=== PATIENT | male | born 1950 | race Asian ===

== ENCOUNTER 2025-03-14 09:50 | Outpatient (CLI) | payer MEDICARE, SELFPAY ==
--- OUTSIDE RECORDS SUMMARY | 2025-03-14 09:58 | XMS_ITS | Clinical Summary ---
Author Organization [facility] Address [address] [place] [id number] Phone Care Team Providers Care Lpta Name Role Phone Alexandra Coffman MD Primary Care Provider [phone] Allergies Active Allergy Reactions Criticality Noted Date Comments Aspirin nausea Low 02/02/2017 High dose only High dose only Medications sildenafil (VIAGRA) 100 MG tablet as directed 0 7 Active aspirin EC 81 MG EC tablet one tab daily 0 7 Active niacin (NIASPAN) 1000 MG CR tablet one tab daily at bedtime 0 7 Active cholecalciferol (VITAMIN D-3) 25 MCG (1000 UT) capsule Take 2,000 Units by mouth 1 (one) time each day Active olopatadine (PATANOL) 0.1 % ophthalmic solution 1 drop 2 (two) times a day Active allopurinol (ZYLOPRIM) 100 MG tablet Take 100 mg by mouth 1 (one) time each day Active escitalopram (LEXAPRO) 10 MG tablet Take 10 mg by mouth daily 2 Active cycloSPORINE (RESTASIS) 0.05 % ophthalmic emulsion Administer 1 drop into both eyes in the morning and 1 drop in the evening. Active Icosapent Ethyl (Vascepa) 1 g capsule Take 2 capsules by mouth in the morning and 2 capsules in the evening. Active lisinopril (PRINIVIL) 10 MG tablet Take 30 mg by mouth 1 (one) time each day Active mometasone (ELOCON) 0.1 % cream Apply 1 application. topically 1 (one) time each day Active Semaglutide,0.2 5 or 0.5MG/DOS, (Ozempic, 0.25 or 0.5 MG/DOSE,) 2 MG/3ML solution pen-injector Inject 0.5 mg under the skin per week Active ascorbic acid (VITAMIN C) 1000 MG tablet Take 1,000 mg by mouth 1 (one) time each day Active chlorthalidone (HYGROTON) 25 MG tablet Take 25 mg by mouth 1 (one) time each day Active clotrimazole (LOTRIMIN) 1 % cream Apply topically 2 (two) times a day Active ezetimibe-simva statin (VYTORIN) 10-40 MG per tablet Take 1 tablet by mouth every night Active Active Problems Problem Noted Date Diagnosed Date Hypercalcemia 09/25/2024 Chronic kidney disease 12/26/2017 Obstructive sleep apnea 12/27/2016 Essential (primary) hypertension 12/14/2016 Resolved Problems Problem Noted Date Diagnosed Date Resolved Date Hyperuricemia 02/23/2021 08/10/2022 Steatosis of liver 02/17/2021 Acquired cyst of kidney 12/27/201602/04 Immunizations Immunization Administration Dates Next Due Influenza TIV (IM) 11/07/2016 Family History Medical History Relation Comments Cerebrovascular accident Father Hypertensive disorder Father Kidney disease Neg Hx Relation Status Comments Father Social History Tobacco Use Types Packs/Day Years Used Date Smoking Tobacco: Never Smokeless Tobacco: Never Alcohol Use Standard Drinks/Week Comments Yes 0 (1 standard drink = 0.6 oz pure alcohol) Alcoholic Drinks/day: occasional use Sex and Gender Information Value Date Recorded Sex Assigned at Not on file Legal Sex Male 9:45 AM [facility] Gender Identity Not on file Sexual Orientation Not on file Last Filed Vital Signs Vital Sign Reading Time Taken Comments Blood Pressure 113/71 09/25/2024 2:39 PM [facility] Pulse 81 09/25/2024 2:39 PM [facility] Temperature - - Respiratory Rate - - Oxygen Saturation - - Inhaled Oxygen Concentration - - Weight 91.2 kg (201 lb) 09/25/2024 2:39 PM [facility] Height 167.6 cm (5' 6 ) 09/25/2024 2:39 PM [facility] Body Mass Index 32.44 09/25/2024 2:39 PM [facility] Plan of Treatment Upcoming Encounters Date Type Department Care Team ([facility] st Contact Info) Description 03/26/2025 2:40 PM CDT Office Visit [facility] [address] [place] [phone] Amadeo Tomlin MD [address] [facility] [address] [place] [address] Health Maintenance Due Date Last Done Comments Diabetic Foot Exam 1960 Ophthalmology Exam 1960 Pneumococcal PPSV23/PCV13 65 + Years / High and Highest Risk (2 of 4 - PPSV23) 10/02/2019 08/07/2019 COVID-19 Vaccine (5 - 2023-2 5 season) 2024 02/17/2022, 08/29/2021, 01/25/2021, Additional history exists Influenza Vaccine (Season Ended) 2025 08/31/2022, 08/27/2021, 08/09/2020, Additional history exists Insurance [employer] Care Teams Lpta Relationship Specialty Start [place] [id number] [place], [place] [id number] PCP - General Family Medicine 09/23/24
--- OUTSIDE RECORDS SUMMARY | 2025-03-14 09:58 | XMS_ITS | Clinical Summary ---
Author Organization [address] Address [address] [place] [id number] Care Team Providers Care Wort Extractor Name Role Phone Helen Paris Primary Care Provider + Allergies Active Allergy Reactions Criticality Noted Date Comments Aspirin Medications ascorbic acid (VITAMIN C) 1,000 mg tablet Take 1 tablet (1,000 mg total) by mouth daily Active aspirin 81 mg enteric coated tablet Take 1 tablet (81 mg total) by mouth daily 12/14/19 17 Active cycloSPORINE (RESTASIS) 0.05 % ophthalmic emulsion Administer 1 drop into affected eye(s) 2 (two) times a day Active olopatadine (PATANOL) 0.1 % ophthalmic solution Administer 1 drop into affected eye(s) 2 (two) times a day 12/04/19 24 Active clotrimazole 1 % creamIndications:R beverly Apply topically 2 (two) times a day 30 g 05/10/20 24 Active cholecalciferol (VITAMIN D-3) 1,000 unit capsule Take 2 capsules (2,000 Units total) by mouth daily 180 capsule 3 05/10/20 24 Active mometasone (ELOCON) 0.1 % creamIndications:E czema, unspecified type Apply 1 Application topically daily 45 g 5 05/10/20 24 Active niacin ER (NIASPAN) 1,000 mg CR tabletIndications: Mixed hyperlipidemia Take 1 tablet (1,000 mg total) by mouth nightly 90 tablet 3 05/10/20 24 Active Additional Information Patient not taking.Reported on 01/16/2025 sildenafiL (VIAGRA) 100 mg tabletIndications: Erectile dysfunction, unspecified erectile dysfunction type Take 1 tablet (100 mg total) by mouth as needed for erectile dysfunction 10 tablet 5 05/10/20 24 Active icosapent ethyL (VASCEPA) 1 gram capsuleIndications :Mixed hyperlipidemia Take 2 capsules (2 g total) by mouth 2 (two) times a day 360 capsule 3 11/18/19 25 Active allopurinoL (ZYLOPRIM) 100 mg tabletIndications: Idiopathic chronic gout of multiple sites without tophus Take 1 tablet (100 mg total) by mouth daily 90 tablet 3 11/18/19 25 Active chlorthalidone (HYGROTON) 25 mg tabletIndications: Essential hypertension Take 1 tablet (25 mg total) by mouth daily 90 tablet 3 11/18/19 25 Active escitalopram (LEXAPRO) 10 mg tabletIndications: Recurrent major depressive disorder, in full remission Take 1 tablet (10 mg total) by mouth daily 90 tablet 3 11/18/19 25 Active Additional Information Patient not taking.Reported on 01/16/2025 ezetimibe-simvasta tin (VYTORIN) 10-40 mg per tabletIndications: Mixed hyperlipidemia Take 1 tablet by mouth nightly 90 tablet 3 11/18/19 25 Active lisinopriL (PRINIVIL,ZESTRIL) 10 mg tabletIndications: Essential hypertension Take 3 tablets (30 mg total) by mouth daily 270 tablet 3 11/18/19 25 Active semaglutide (Ozempic) 0.25 mg or 0.5 mg (2 mg/3 mL) pen injector injectionIndicatio ns:Type 2 diabetes mellitus with stage 3a chronic kidney disease, without long-term current use of insulin (HCC) Inject 0.5 mg under the skin once a week 9 mL 1 02/09/20 25 Active Active Problems Problem Noted Date Diagnosed Date Type 2 diabetes mellitus wit h stage 3a chronic kidney disease, without long-term current use of insulin 11/18/2024 Assessment & Plan (11/18/2024 4:12 PM SODDER): Chronic, stable. Follows with Nephrology for kidney disease which has been stable. Diabetes managed with Ozempic - good control Repeat labs ordered Eye exam on file, no retinopathy Continues on statin, lisinopril, aspirin Erectile dysfunction 05/10/2024 Assessment & Plan (05/10/2024 8:25 AM CDT): Chronic, stable continues on Viagra. Eczema 05/10/2024 Assessment & Plan (05/10/2024 8:24 AM CDT): Chronic, stable. Continue Elocon on p.r.n.. Dermatology referral placed. Recurrent major depressive disorder, in full rem ission 08/31/2021 Assessment & Plan (11/18/2024 4:13 PM SODDER): Chronic, stable. Continue Lexapro 10 mg daily Assessment & Plan (05/10/2024 8:22 AM CDT): Chronic, stable. Continue Lexapro 10 mg daily. Idiopathic chronic gout of multiple sites withou t tophus 08/31/2021 Assessment & Plan (11/18/2024 4:13 PM SODDER): Chronic, stable. Continue daily allopurinol Assessment & Plan (05/10/2024 8:22 AM CDT): Chronic, stable. Continue allopurinol daily. Hyperuricemia 02/23/2021 Assessment & Plan (11/18/2024 4:13 PM SODDER): Chronic, stable. Continue allopurinol 100 mg daily Steatosis of liver 02/17/2021 Assessment & Plan (05/10/2024 8:22 AM CDT): Chronic. Repeat labs ordered. Continue weight loss. History of colon cancer 08/07/2019 Assessment & Plan (11/18/2024 4:14 PM SODDER): Monitored with routine colonoscopy. Follows with Dr. Naomi yan recently done, report requested Assessment & Plan (05/10/2024 8:15 AM CDT): Colon cancer s/p colon resection 2004 Last c-scope 01/2023 - was to be repeated in 1 year Will refer to GI for repeat c-scope and surveillance Hypercalcemia 12/26/2017 Assessment & Plan (11/18/2024 4:12 PM SODDER): Patient has had some fluctuating calcium levels We will recheck, labs ordered He is also following with Nephrology who had ordered some additional workup including: - Immunofixation (MIGUELINA) and Protein Electrophoresis, Serum; Future - Parathyroid-related Peptide (PTH-rP); Future - PTH Intact, Serum; Future Could be secondary to his diuretic/chlorthalidone Obstructive sleep apnea syndrome 11/09/2016 Assessment & Plan (11/18/2024 4:13 PM SODDER): Chronic, stable. Patient uses CPAP nightly and is benefitting from therapy. Assessment & Plan (05/10/2024 8:22 AM CDT): Chronic, stable. Continue use of CPAP nightly. Hyperlipidemia 06/26/2013 Assessment & Plan (11/18/2024 4:13 PM SODDER): Chronic, stable. Continue Vascepa, Vytorin Has been seen by Cardiology as well Labs reviewed Assessment & Plan (05/10/2024 8:22 AM CDT): Chronic, stable. Labs ordered. Continue Vytorin and Vascepa. Generalized osteoarthritis of multiple sites Essential hypertension 04/26/2013 Assessment & Plan (11/18/2024 4:13 PM SODDER): Chronic, stable. Continue lisinopril 30 mg daily Assessment & Plan (05/10/2024 8:22 AM CDT): Chronic, stable. Continue lisinopril 30 mg daily. Resolved Problems Problem Noted Date Diagnosed Date Resolved Date Acquired hypothyroidism 09/08/2022 07/0 03/2024 Stage 3a chronic kidney disease 05/12/2016 11/18/2024 Assessment & Plan (05/10/2024 8:22 AM CDT): Chronic, stable. Continue medications as prescribed. Follows with Nephrology. Repeat labs ordered. History of colon cancer 12/04/20090 03/2024 Encounters Date Type Department Care Team Description 02/05/2025 Telephone [facility] Accountable Care Organization [address] [place] [address] Jo-Ann Medrano MA Chart Review (Med adherence ) 01/16/2025 2:15 PM CDT Office Visit [facility] Medical Group Cardiology [address] [place] [address] Vernon Rodriguez MD Dyspnea, unspecified type (Primary Dx) 12/20/2024 1:00 PM SODDER Office Visit [facility] Endocrinology Metabolism and Lipid [address] [place] [address] [place] [address] Chase Logan MD Thyroiditis (Primary Dx); Thyroid nodule; Type 2 diabetes mellitus with stage 3a chronic kidney disease, without long-term current use of insulin (HCC); Hypercalcemia; Mixed hyperlipidemia; Essential hypertension from Last 3 Months Immunizations Immunization Administration Dates Next Due Influenza, Quad, Adjuvantate d, Intramuscular 08/31/2022,08/27/2021,08/09/2020 Influenza, Quadrivalent, Hig h Dose, Preservative Free, Intrr 08/07/2023,08/06/2018,09/07/2017 Influenza, Trivalent, High D ose, Split, Preservative Free, Intramuscular 07/08/2024,08/06/2018,09/07/2017 Influenza, Trivalent, Preser vative Free, Intramuscular 11/20/2016 Influenza, Unspecified 11/07/2016,09/11/2013 Moderna SARS-CoV-2 Monovalen t Vaccination (12+ YRS) 01/26/2021,01/25/2021 Pneumococcal Conjugate PCV 13 08/07/2019 Pneumococcal Polysaccharide PPV23 08/26/2020 RSV Vaccine, Pref, Recombina nt, Subunit, Adjuvanted, PF, IM (Arexvy) 05/14/2024 Tdap 08/16/2019 ZOSTER Recombinant 03/28/2018,12/22/2017 Surgical History Surgery Date Site/Laterality Comments COLECTOMY 12/07/2004 - 01/03/2005 APPENDECTOMY 07/07/2005 - 08/05/2005 COLONOSCOPY W/ POLYPECTOMY 01/04/2023 - 02/03/2023 Medical History Medical History Date Comments Colon cancer (HCC) s/p colon res ection 2004 Achilles tendon rupture 1994 CKD (chronic kidney disease) Hypertension Vision problems Gout Family History Medical History Relation Name Comments Lung cancer Brother 1 Liver cancer Brother 2 Liver cancer Brother 3 blood pressure Father Hypertension Mother Usha Myat Tin No Known Problems Sister 1 No Known Problems Sister 2 No Known Problems Sister 3 Relation Name Status Comments Brother 1 Brother 2 Brother 3 Father Maternal Grandfather Maternal Grandmother Mother Usha Myat Tin Paternal Grandfather Paternal Grandmother Sister 1 Alive Sister 2 Alive Sister 3 Alive Social History Tobacco Use Types Packs/Day Years Used Date Smoking Tobacco: Never Smokeless Tobacco: Never Tobacco Cessation:Counseling Given: Not Answered AUDIT-C Answer Date Recorded Q1: How often do you have a drink containing alc ohol? Monthly or less 05/10/2024 Q2: How many drinks containi ng alcohol do you have on a typical day when you are drinking? 1 or 2 05/10/2024 Q3: How often do you have si x or more drinks on one occasion? Never 05/10/2024 PHQ-2 Answer Date Recorded PHQ-2 Total Score (If total score is 3 or more points, staff should administer the PHQ-9) 0 11/18/2024 Exercise Vital Sign Answer Date Recorde d On average, how many days pe r week do you engage in moderate to strenuous exercise (like a brisk walk)? 3 days Minutes of Exercise per Session Not on file 05/10/2024 PHQ-9 Answer Date Recorded PHQ-9 Total Score 0 05/10/2024 Sex and Gender Information Value Date Recorded Sex Assigned at Not on file Legal Sex Male 6:00 AM SODDER Gender Identity Not on file Sexual Orientation Asexual 09/01/2024 9: 31 PM CDT Occupation Industry Job Start Date Job End Date retired Not on file Not on file Not on file Obstetrics History Last Filed Vital Signs Vital Sign Reading Time Taken Comments Blood Pressure 111/72 01/16/2025 2:00 PM CDT Pulse 87 01/16/2025 2:00 PM CDT Temperature 36.7 C (98.1 F) 12/20/2024 12:38 PM SODDER Respiratory Rate 16 11/18/2024 3:44 PM SODDER Oxygen Saturation 95% 01/16/2025 2:00 PM CDT Inhaled Oxygen Concentration - - Weight 93.4 kg (206 lb) 01/16/2025 2:00 PM CDT Height 165.1 cm (5' 5 ) 12/20/2024 12:38 PM SODDER Body Mass Index 34.28 12/20/2024 12:38 PM SODDER Plan of Treatment Health Maintenance Due Date Last Done Comments Foot Exam 1950 Well Visit 65+ 2014 Colon Cancer Screening-Colonoscopy 01/07/20242022 Covid-19 Vaccine (2023-12 5 season) 2025 07/08/2024, 08/07/2023, 08/31/2022, Additional history exists Albumin Creatinine Ratio, Urine 05/10/2025 Fall Risk Assessment 05/10/2025 05/10/2024 Hemoglobin A1C 05/19/2025 11/19/2024, 05/10/2024 Dilated Eye Exam 05/24/2025 05/24/2024 Lipid Panel 06/20/2025 06/20/2024, 07/0 03/2024, 08/27/2021 Depression Screening 11/18/2025 11/18/2024, 05/10/2024, 05/10/2024 eGFR 11/19/2025 11/19/2024, 11/0 06/2024, 06/27/2024, Additional history exists DTaP/Tdap/Td Vaccine (2 - Td or Tdap) 08/16/2029 08/16/2019 Zoster Vaccine Completed 03/28/2018, 12/22/2017 Pneumococcal vaccine 65+ Completed 08/26/2020, 10/0 12/2018 Hepatitis B Screening Completed 06/27/2024 Hepatitis C Screening Completed 06/27/2024 Influenza Vaccine Completed 07/08/2024, , 08/31/2022, Additional history exists Procedures Procedure Name Priority Date/Time Associated Diagnosis Comments POCT GLUCOSE [id number] Routine 12/20/2024 12 :41 PM SODDER Type 2 diabetes mellitus with stage 3a chronic kidney disease, without long-term current use of insulin (HCC) EGFR Routine 11/19/2024 8:39 AM SODDER Type 2 diabetes mellitus with stage 3a chronic kidney disease, without long-term current use of insulin (HCC) HEMOGLOBIN A1C Routine 11/19/2024 8:39 AM SODDER Type 2 diabetes mellitus with stage 3a chronic kidney disease, without long-term current use of insulin (HCC) HEPATITIS C ANTIBODY Routine 06/27/2024 12:49 PM CDT Need for hepatitis C screening test LIPID PANEL Routine 06/20/2024 8:34 AM CDT Mixed hyperlipidemia Type 2 diabetes mellitus with stage 3a chronic kidney disease, without long-term current use of insulin (HCC) HM DIABETES EYE EXAM Routine 05/24/2024 4:10 PM CDT ALBUMIN CREATININE RATIO, URINE Routine 05/10/2024 8:07 AM CDT Prediabetes Obesity (BMI 30-39.9) Acquired hypothyroidism Mixed hyperlipidemia Essential hypertension Rash COLONOSCOPY Routine 01/06/2023 8:17 AM SODDER from Last 3 Months or Most Recently Relevant to Health Maintenance Results * POCT glucose (12/20/2024 12:41 PM SODDER) [facility] Glucose Blood, POC 90 mg/dL Blood 12/20/2024 12:4 1 PM SODDER Chase Logan MD POINT OF CA RE TEST ORDERABLES Final Result * (ABNORMAL) eGFR (11/19/2024 8:39 AM SODDER) [facility] eGFR 38(L) >=60 mL/min/1. 73 m2 Comment: Interpretive Data Reference Interval Normal >/= 90 mL/min/1.73m2 Mildly decreased* 60 - 89 mL/min/1.73m2 Mildly to moderately decreased 45 - 59 mL/min/1.73m2 Moderately to severely decreased 30 - 44 mL/min/1.73m2 Severely decreased 15 - 29 mL/min/1.73m2 Kidney Failure < 15 mL/min/1.73m2 *Relative to young adult level Estimated glomerular filtration rate is determined by the 2020 CKD-EPI equation recommended by the National Kidney Foundation (A Unifying Approach to GFR Estimation: Recommendations of the NKF-ASK Task Force on Reassessing the Inclusion of Race in Diagnosing Kidney Disease, JASN 2020). The CKD-EPI equation should not be used for patients with unstable renal function and has not been validated in children and those over 70. Current interpretive data was last reviewed 2021. Testing performed by: [address] [address] Blood 11/19/2024 8:39 AM SODDER 11/19/2024 12:35 PM SODDER Helen CRONIN LAB BLOOD ORDERABLES Fin al Result Performing Organization Address City/State/[facility] Co de Phone Number JERAMY [address] [facility] Department [place] [address] * (ABNORMAL) Hemoglobin A1c (11/19/2024 8:39 AM SODDER) [facility] Hgb A1C 5.7(H) 4.0 - 5.6 % Comment:Testing performed by : [address] [address] Estimated Average Glucose 117 mg/dL JERAMY Comment: The ADA recommends reporting an estimated Average Glucose (eAG) with all Hemoglobin A1c results using the equation derived from a study of 507 normal and diabetic adults. Minority populations were underrepresented and children were not included. (Diabetes Care 31:5050-5381, 2008). The eAG is not equivalent to a fasting glucose. Testing performed by: [address] [address] Blood 11/19/2024 8:39 AM SODDER 11/19/2024 12:35 PM SODDER Helen CRONIN LAB BLOOD ORDERABLES Fin al Result Performing Organization Address City/[facility] Co de Phone Number [place] [phone] [facility] [place] [address] * Hepatitis C antibody Blood (06/27/2024 12:49 PM CDT) Hep C Ab Nonreactive Nonreactive Comment: Antibodies to HCV not detected. Does NOT exclude the possibility of recent exposure to HCV. Current interpretive data was last revised on 22 Interpretive Data Nonreactive: Antibodies to HCV not detected. Does NOT exclude the possibility of recent exposure to HCV. Equivocal: Equivocal for HCV antibodies. Supplemental molecular testing will be automatically performed to determine infection status in accordance with current CDC screening recommendations. Reactive: Positive for HCV antibodies. This may represent current or past HCV infection. Supplemental molecular testing will be automatically performed to determine current infection status in accordance with current CDC screening recommendations. Interpretive data was last revised on 2020. Blood 06/27/2024 12:4 9 PM CDT 06/27/2024 6:31 PM CDT us Helen CRONIN LAB MICROBIOLOGY - GENER AL ORDERABLES Edited Result - Final Performing Organization Address [facility] Co de Phone Number [place] [phone] [facility] [place] [address] * Lipid panel (06/20/2024 8:34 AM CDT) Cholesterol 134 30 - 199 mg/dL Comment: Interpretive Data Ages < or = 19 years Acceptable: <170 mg/dL Borderline high: 170-199 mg/dL High: >or= 200 mg/dL Ages > or = 20 years Desirable: <200 mg/dL Borderline high: 200-239 mg/dL High: >or= 240 mg/dL Literature References: 1. Expert Panel on Integrated Guidelines for Cardiovascular Health and Risk Reduction in Children and Adolescents. Pediatrics 2011;128:S213 2. NCEP Expert Panel. Circulation 2004;110:227 Current Interpretive Data was last revised on 2018. Testing performed by: [facility], [address] [place] [address]., [address] Triglycerides 87 <=149 mg/dL JERAMY Comment: Interpretive Data Ages < or = 9 years Acceptable: <75 mg/dL Borderline high: 75-99 mg/dL High: >or= 100 mg/dL Ages 10 to 20 years Acceptable: <90 mg/dL Borderline high: 90-129 mg/dL High: >or= 130 mg/dL Ages > or = 20 years Desirable: <150 mg/dL Borderline high: 150-199 mg/dL High: 200-499 mg/dL Very high: >or= 499 mg/dL Literature References: 1. Expert Panel on Integrated Guidelines for Cardiovascular Health and Risk Reduction in Children and Adolescents. Pediatrics 2011;128:S213 2. NCEP Expert Panel. Circulation 2004;110:227 Current Interpretive Data was last revised on 2018. Testing performed by: [address] [address] HDL 48 >=40 mg/dL JERAMY Comment: Interpretive Data Ages < or = 19 years Acceptable: >45 mg/dL Borderline low: 40-45 mg/dL Low: <40 mg/dL Ages > or = 20 years Desirable: >or= 60 mg/dL Low: <40 mg/dL Literature References: 1. Expert Panel on Integrated Guidelines for Cardiovascular Health and Risk Reduction in Children and Adolescents. Pediatrics 2011;128:S213 2. NCEP Expert Panel. Circulation 2004;110:227 Current Interpretive Data was last revised on 2018. Testing performed by: [address] [address] LDL, calculated 69 <=129 mg/dL JERAMY Comment: Interpretive Data Ages < or = 19 years Acceptable: <110 mg/dL Borderline high: 110-129 mg/dL High: >or= 130 mg/dL Ages > or = 20 years Optimal: <100 mg/dL Near optimal: 100-129 mg/dL Borderline high: 130-159 mg/dL High: >160 mg/dL Literature References: 1. Expert Panel on Integrated Guidelines for Cardiovascular Health and Risk Reduction in Children and Adolescents. Pediatrics 2011;128:S213 2. NCEP Expert Panel. Circulation 2004;110:227 Current Interpretive Data was last revised on 2018. Testing performed by: [address] [address] Non-HDL Cholesterol 86 mg/dL JERAMY Comment: Interpretive Data Ages < or = 19 years Acceptable: <120 mg/dL Borderline high: 120-144 mg/dL High: >145 mg/dL Ages > or = 20 years When triglycerides are >200 mg/dL, Non-HDL cholesterol is a secondary target of therapy with treatment goals that are 30 mg/dL greater than the LDL cholesterol target. Literature References: 1. Expert Panel on Integrated Guidelines for Cardiovascular Health and Risk Reduction in Children and Adolescents. Pediatrics 2011;128:S213 2. NCEP Expert Panel. Circulation 2004;110:227 Current Interpretive Data was last revised on 2018. Testing performed by: [address] [address] Chol/HDL ratio 3 JERAMY Comment:Testing performed by : [address] [address] Blood 06/20/2024 8:34 AM CDT 06/20/2024 12:14 PM CDT Helen CRONIN LAB BLOOD ORDERABLES Fin al Result [facility] [address] [facility] Department [place] [address] * DIABETES EYE EXAM (05/24/2024 4:10 PM CDT) SCRIBED DIABETIC DILATED EYE EXAM Normal Historical Provider HEALTH MAINTENANCE Final Result * Albumin Creatinine Ratio, Urine (05/10/2024 8:07 AM CDT) Albumin Ur <12.0 mg/L Comment: Interpretive Data No reference range established. Current interpretive data was last revised 2019. Testing performed by: [address] [address] Creatinine Ur 117.3 mg/dL JERAMY Comment: Interpretive Data No reference range established. Current interpretive data was last revised 2019. Testing performed by: [address] [address] Albumin Creatinine Ratio, Ur <10 1 - 29 mg/g JERAMY ARMAS Comment:Testing performed by : [facility], [facility], [place]., [address] Urine 05/10/2024 8:07 AM CDT 05/10/2024 12:41 PM CDT Helen CRONIN LAB URINE ORDERABLES Fin al Result JERAMY [address] [facility] Department [place] [address] * Colonoscopy (01/06/2023 8:17 AM SODDER) Anatomical Region Laterality Modality Other Impressions 01/06/2023 8:17 AM SODDER See care everywhere for results. Patient to repeat in 1 yr Historical Provider ENDOSCOPY PROCEDURES Elisa l Result from Last 3 Months or Most Recently Relevant to Health Maintenance Insurance [facility] Care Teams Wort Extractor Relationship Specialty Start Date End Date Helen Paris PA [phone] [address] PCP - General Family Medicine 05/10/24
--- OUTSIDE RECORDS SUMMARY | 2025-03-14 09:58 | XMS_ITS | Clinical Summary ---
Author Organization [facility] Address [address] [place] [address] Care Team Providers Care Shuttle Filler Name Role Phone Unavailable Primary Care Provider Unavailabl e Allergies Active Allergy Reactions Criticality Noted Date Comments Aspirin Nausea Only Low 02/02/2017 High dose only Medications CPAP MACHINE CPAPUnknown [id number], VentrapragadaActive 017 Active aspirin 81 MG tablet Take 1 tablet (81 mg total) by mouth daily. 013 Active Cholecalciferol (VITAMIN D) 2000 units Tab Take 1 tablet (2,000 Units total) by mouth every other day. Active MOMETASONE FUROATE 0.1 % solutionIndicatio ns:Dermatitis APPLY TOPICALLY DAILY 60 mL 021 Active cycloSPORINE 0.05 % ophthalmic emulsion Place 1 drop into both eyes 2 (two) times daily. Active sildenafil 100 MG tabletIndications :Erectile dysfunction of nonorganic origin Use take as directed 18 tablet 1 021 Active vitamin D3, cholecalciferol, 25 MCG (1000 UT) capsule Take 2 capsules (2,000 Units total) by mouth. Ac tive vitamin C (ASCORBIC ACID) 1000 MG tablet Take 1 tablet (1,000 mg total) by mouth daily. Active semaglutide (OZEMPIC) 2 MG/3ML injection (PEN)Indications: Weight Loss Indications: Weight Loss Use 0.5 mg weekly for subcutaneous. 9 mL 2 023 Active lisinopril (PRINIVIL) 10 MG tabletIndications :Essential hypertension Take 3 tablets (30 mg total) by mouth daily. 270 tablet 1 023 Active niacin CR (NIASPAN) 1000 MG tabletIndications :Mixed hyperlipidemia TAKE 1 TABLET NIGHTLY AT BEDTIME 90 tablet 1 023 Active icosapent ethyl (VASCEPA) 1 G capsuleIndication s:Mixed hyperlipidemia TAKE 2 CAPSULES (2G TOTAL) TWO TIMES A DAY WITH FOOD 360 capsule 1 023 Active ezetimibe-simvast atin (VYTORIN) 10-10 MG tabletIndications :Mixed hyperlipidemia TAKE 1 TABLET NIGHTLY AT BEDTIME 90 tablet 1 023 Active escitalopram (LEXAPRO) 10 MG tabletIndications :Mild episode of recurrent major depressive disorder Take 1 tablet (10 mg total) by mouth daily. 90 tablet 1 023 Active allopurinol (ZYLOPRIM) 100 MG tabletIndications :Hyperuricemia Take 1 tablet (100 mg total) by mouth daily. 90 tablet 1 023 Active olopatadine (PATANOL) 0.1 % ophthalmic solutionIndicatio ns:Allergic conjunctivitis of both eyes Place 1 drop into both eyes 2 (two) times daily. 20 mL 3 024 Active Active Problems Problem Noted Date Diagnosed Date Change in bowel habits 11/30/2022 Acquired hypothyroidism 09/08/2022 Encounter for follow-up surveillance of colon ca ncer 09/13/2021 Mild episode of recurrent major depressive disor jenny 08/31/2021 Idiopathic chronic gout of multiple sites withou t tophus 08/31/2021 Hyperuricemia 02/23/2021 Steatosis of liver 02/17/2021 BMI 34.0-34.9,adult 08/07/2019 History of colon cancer 08/07/2019 Dermatitis 08/07/2019 Hepatitis B core antibody positive 09/21/2018 Abnormal thyroid blood test 06/29/2018 CPAP (continuous positive airway pressure) depalfonzo denlynn 12/28/2017 Hypercalcemia 12/26/2017 Acquired cyst of kidney 12/27/2016 DANILO (obstructive sleep apnea) 11/09/2016 Chronic kidney disease 05/12/2016 Polycythemia 05/11/2016 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 Hyperlipidemia 06/26/2013 Essential hypertension 04/26/2013 Resolved Problems Problem Noted Date Diagnosed Date Resolved Date Encounter for colonoscopy du e to history of adenomatous colonic polyps 09/13/2021 09/20/2021 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[facility]) 12/04/2009 08/07/2019 Immunizations Immunization Administration Dates Next Due Fluzone High Dose - >Age 65 (Prefilled Syringe) 08/07/2023,08/06/2018,09/07/2017 Influenza (Generic) 11/07/2016 Influenza Adult (Generic) 08/31/2022,,08/09/2020,2017,09/07/2017,11/20/2016,09/11/2013 MODERNA COVID-19 (12+) MRNA, LNP-S, PF, 100 MCG/ 0.5 ML DOSE 08/29/2021,01/25/2021,12/17/2020 MODERNA COVID-19 (PHYSICIAN SPECIALIST MARLENI JEFF), MRNA, LNP-S, PF, 50 MCG/ 0.25 ML DOSE 02/17/2022 Pneumococcal (Pneumovax 23) 08/26/2020 Pneumococcal (Prevnar 13) 08/07/2019 Shingrix 03/28/2018,12/22/2017 Tdap (Boostrix) 08/16/2019 Family History Medical History Relation Comments Stroke Father Stroke Mother Relation Status Comments Father Mother Social History Tobacco Use Types Packs/Day Years Used Date Smoking Tobacco: Never Smokeless Tobacco: Never Tobacco Cessation:Counseling Given: No Alcohol Use Standard Drinks/Week Comments Not Currently 0 (1 standard drink = 0.6 oz pur e alcohol) social AUDIT-C Answer Date Recorded Frequency of Alcohol Consumption Monthly or less 09/21/2018 Average Number of Drinks 1 or 2 018 Frequency of Binge Drinking Not on file 09/06 PHQ-2 Answer Date Recorded Patient Health Questionnaire-2 Score 0 11/14/2022 Education Answer Date Recorded What is the highest level of school you have completed or the highest degree you have received? 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 Not on file Not on file Last Filed Vital Signs Vital Sign Reading Time Taken Comments Blood Pressure 148/85 08/10/2023 3:51 PM CDT Pulse 66 08/10/2023 3:22 PM CDT Temperature 36.3 C (97.4 F) 08/10/2023 3:22 PM CDT Respiratory Rate 18 08/10/2023 3:22 PM CDT Oxygen Saturation 98% 08/10/2023 3:22 PM CDT Inhaled Oxygen Concentration - - Weight 93 kg (205 lb) 08/10/2023 3:22 PM CDT Height 167.6 cm (5' 6 ) 08/10/2023 3:22 PM CDT Body Mass Index 33.09 08/10/2023 3:22 PM CDT Plan of Treatment Health Maintenance Due Date Last Done Comments Annual Medicare Wellness Visit 06/09/2022 06/08/2021 Colorectal Cancer Screening Colonoscopy (10 Years) 01/07/2024 01/06/2023, 01/06/2023, 10/07/2021, Additional history exists RSV Immunization or 60+ Years (1 - 1-dose 75+ series) 2024 COVID-19 Vaccine ( season) 2024 08/07/2023, 08/31/2022, 02/17/2022, Additional history exists PHQ-2 (Physician [place]) 11/06/2024 DTaP, Tdap and Td Vaccines (2 - Td or Tdap) 08/16/2029 08/16/2019 Zoster Vaccines Completed 03/28/2018, 12/22/2017 Hepatitis C Completed 09/21/2018, 09/21/2018 Pneumococcal Vaccine: 50+ Years Completed 08/26/2020, 08/07/2019 Meningococcal B Vaccine Aged Out No l onger eligible based on patient's age to complete this topic Meningococcal Vaccine Aged Out No nel guera eligible based on patient's age to complete this topic RSV Immunizations Under 20 Months Aged Out No longer eligible based on patient's age to complete this topic Procedures Procedure Name Priority Date/Time Associated Diagnosis Comments COLONOSCOPY Routine 01/06/2023 8:44 AM PERSONALIZED LIVING MANAGER HEPATITIS A,B,& C Routine 09/21/2018 8:4 0 AM PERSONALIZED LIVING MANAGER Abnormal laboratory test result from Last 3 Months or Most Recently Relevant to Health Maintenance Results * COLONOSCOPY (10/07/2021) us Documents Scanned SCANNING Final Result [facility] ONBASE * (ABNORMAL) HEPATITIS A,B,& C (09/21/2018 8:40 AM PERSONALIZED LIVING MANAGER) HEPATITIS B SURFACE AG NON-REACTIVE NR [facility] HEP B CORE TOTAL AB REACTIVE(A) NR [facility] HEP B SURFACE AB REACTIVE [facility] HAV IGM NON-REACTIVE NR [facility] HEPATITIS C AB NON-REACTIVE NR [facility] 09/21/2018 8:40 AM PERSONALIZED LIVING MANAGER 09/22/2018 9:40 AM PERSONALIZED LIVING MANAGER Abdifatah Downing MD LABORATORY Final Re sult Performing Organization Address City/[facility]/ZIP Co de Phone Number [facility] [address] [id number], from Last 3 Months or Most Recently Relevant to Health Maintenance Insurance [employer]
--- OUTSIDE RECORDS SUMMARY | 2025-03-14 09:58 | XMS_ITS | Encounter Summary ---
Author Organization [facility] Address [address] [place] [id number] Care Team Providers Care Automobile Insurance Claim Examiner Name Role Phone Abdifatah Downing MD Primary Care Provider U Alexandra Tafoya MD Primary Care Provider [phone] Encounter Details Date Type Department Care Team (Late st Contact Info) Description 03/24/2021 Startupi Message hipix [facility] Medical Group Family & Internal Medicine [facility] [address] [place] [address] [facility] Provider medication Social History Tobacco Use Types Packs/Day Years [...] on file 09/06 PHQ-2 Answer Date Recorded PHQ-2 Score - If the patient scores above 3, please move on to questions 3-9 0 02/24/2021 Education Answer Date Recorded What is the highest level of school you have completed or the highest degree you have received? 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 No / Unsure 02/24/2021 10:09 AM CDT documented as of this encounter Plan of Treatment Not on file documented as of this encounter Visit Diagnoses Not on filedocumented in this encounter Care Teams Automobile Insurance Claim Examiner Relationship Specialty Start Date End Date Abdifatah Downing MD PCP - General INTERNAL MEDICINE 09/11/18 11/13/22 [place] [address] [facility] [place] [address] PCP - General FAMILY PRACTICE 11/14/22 02/04/24 documented as of this encounter
--- OUTSIDE RECORDS SUMMARY | 2025-03-14 09:58 | XMS_ITS | Encounter Summary ---
Author Organization [facility] Address [address] [place] [address] Care Team Providers Care Plant Production Worker Name Role Phone Alexandra Coffman MD Primary Care Provider [phone] Encounter Details Date Type Department Care Team (Late st Contact Info) Description 12/28/2023 Photometics Message [employer] Advanced [employer] [facility] Medical Group Family & Internal Medicine [facility] [address] [place] [address] [place] Provider Reschedule appointment Social History Tobacco Use Types Packs/Day Years Used Date Smoking Tobacco: Never Smokeless Tobacco: Never Alcohol Use Standard Drinks/Week Comments Not Currently [...] Master's degree (e.g., MA, MS, Hazel, MEd, IT SYSTEMS MANAGER, ZARI) 09/21/2018 Sex and Gender Information Value Date Recorded Sex Assigned at Not on file Legal Sex Male 7:31 PM CDT Gender Identity Not on file Sexual Orientation Not on file 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 [place] [address] PCP - General FAMILY PRACTICE 11/14/22 02/04/24 documented as of this encounter
--- OUTSIDE RECORDS SUMMARY | 2025-03-14 09:58 | XMS_ITS | Encounter Summary ---
Author Organization [facility] Address [address] [place] [address] Care Team Providers Care Evaporator Repairer Name Role Phone Abdifatah Downing MD Primary Care Provider U Alexandra Tafoya MD Primary Care Provider [phone] Encounter Details Date Type Department Care Team (Late st Contact Info) Description 09/20/2018 Abstract [facility] Medical Group Family & Internal Medicine - [place] [address] [place] [address] Abdifatah Downing MD Social History Tobacco Use Types Packs/Day Years Used Date Smoking Tobacco: Never Smokeless Tobacco: Never Alcohol Use Standard Drinks/Week Comments Yes 0 (1 standard drink = 0.6 oz pur e alcohol) social AUDIT-C Answer Date Recorded Frequency of Alcohol Consumption Monthly or less 09/21/2018 Average Number of Drinks 1 or 2 018 Frequency of Binge Drinking Not on file 09/06 Sex and Gender Information Value Date Recorded Sex Assigned at Not on file Legal Sex Male 7:31 PM CDT Gender Identity Not on file Sexual Orientation Not on file documented as of this encounter Functional Status documented as of this encounter Plan of Treatment Not on file documented as of this encounter Visit Diagnoses Not on filedocumented in this encounter Care Teams Evaporator Repairer Relationship Specialty Start Date End Date Abdifatah Downing MD PCP - General INTERNAL MEDICINE 09/11/18 11/13/22 Alexandra Coffman MD [address] [place], [place] [address], [place] [address] PCP - General FAMILY PRACTICE 11/14/22 02/04/24 documented as of this encounter
--- OUTSIDE RECORDS SUMMARY | 2025-03-14 09:58 | XMS_ITS | Referral Summary ---
Author Organization [address] Address [address] [place] [id number] Care Team Providers Care Basic Sciences Dean Name Role Phone Helen Paris Primary Care Provider + Encounters Date Type Department Care Team Description 02/05/2025 Telephone [facility] Care Organization [address] [place] [id number] Jo-Ann Medrano MA Chart Review (Med adherence ) 01/16/2025 2:15 PM CDT Office Visit [facility] Cardiology [address] [facility] [address] [place] [phone] Vernon Rodriguez MD Dyspnea, unspecified type (Primary Dx) 12/20/2024 1:00 PM AIRCRAFT INSTRUMENT MECHANIC Office Visit [facility] Endocrinology Metabolism and Lipid [address] [facility] 13[address] [place] [address] [place] [address] Chase Logan MD Thyroiditis (Primary Dx); Thyroid nodule; Type 2 diabetes mellitus with stage 3a chronic kidney disease, without long-term current use of insulin (HCC); Hypercalcemia; Mixed hyperlipidemia; Essential hypertension from Last 3 Months Allergies Active Allergy Reactions Criticality Noted Date [...] Units total) by mouth daily 180 capsule 05/10/20 24 Active mometasone (ELOCON) 0.1 % creamIndications:E czema, unspecified type Apply 1 Application topically daily 45 g 5 05/10/20 24 Active niacin ER (NIASPAN) 1,000 mg CR tabletIndications: Mixed hyperlipidemia Take 1 tablet (1,000 mg total) by mouth nightly 90 tablet 05/10/20 24 Active Additional Information Patient not taking.Reported on 01/16/2025 sildenafiL (VIAGRA) 100 mg tabletIndications: Erectile dysfunction, unspecified erectile dysfunction type Take 1 tablet (100 mg total) by mouth as needed for erectile dysfunction 10 tablet 05/10/20 24 Active icosapent ethyL (VASCEPA) 1 gram capsuleIndications :Mixed hyperlipidemia Take 2 capsules (2 g total) by mouth 2 (two) times a day 360 capsule 11/18/19 25 Active allopurinoL (ZYLOPRIM) 100 mg tabletIndications: Idiopathic chronic gout of multiple sites without tophus Take 1 tablet (100 mg total) by mouth daily 90 tablet 11/18/19 25 Active chlorthalidone (HYGROTON) 25 mg tabletIndications: Essential hypertension Take 1 tablet (25 mg total) by mouth daily 90 tablet 11/18/19 25 Active escitalopram (LEXAPRO) 10 mg tabletIndications: Recurrent major depressive disorder, in full remission Take 1 tablet (10 mg total) by mouth daily 90 tablet 11/18/19 25 Active Additional Information Patient not taking.Reported on 01/16/2025 ezetimibe-simvasta tin (VYTORIN) 10-40 mg per tabletIndications: Mixed hyperlipidemia Take 1 tablet by mouth nightly 90 tablet 11/18/19 25 Active lisinopriL (PRINIVIL,ZESTRIL) 10 mg [...] 11/18/2024 Assessment & Plan (11/18/2024 4:12 PM AIRCRAFT INSTRUMENT MECHANIC): Chronic, stable. Follows with Nephrology for kidney [...] 08/31/2021 Assessment & Plan (11/18/2024 4:13 PM AIRCRAFT INSTRUMENT MECHANIC): Chronic, stable. Continue Lexapro 10 mg daily Assessment & Plan (05/10/2024 8:22 AM CDT): Chronic, stable. Continue Lexapro 10 mg daily. 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 Continue daily allopurinol Assessment & Plan (05/10/2024 8:22 AM CDT): Chronic, stable. Continue allopurinol daily. Hyperuricemia 02/23/2021 Assessment & Plan (11/18/2024 4:13 PM AIRCRAFT INSTRUMENT MECHANIC): Chronic, stable. Continue allopurinol 100 mg daily Steatosis of liver 02/17/2021 Assessment & Plan (05/10/2024 8:22 AM CDT): Chronic. Repeat labs ordered. Continue weight loss. History of colon cancer 08/07/2019 Assessment & Plan (11/18/2024 4:14 PM AIRCRAFT INSTRUMENT MECHANIC): Monitored with routine colonoscopy. Follows with Dr. Naomi yan recently done, report requested Assessment & Plan (05/10/2024 8:15 AM CDT): Colon cancer s/p colon resection 2004 Last c-scope 01/2023 - was to be repeated in 1 year Will refer to GI for repeat c-scope and surveillance Hypercalcemia 12/26/2017 Assessment & Plan (11/18/2024 4:12 PM AIRCRAFT INSTRUMENT MECHANIC): Patient has had some fluctuating calcium levels We will recheck, labs ordered He is also following with Nephrology who had ordered some additional workup including: - Immunofixation (MIGUELINA) and Protein Electrophoresis, Serum; Future - Parathyroid-related Peptide (PTH-rP); Future - PTH Intact, Serum; Future Could be secondary to his diuretic/chlorthalidone Obstructive sleep apnea syndrome 11/09/2016 Assessment & Plan (11/18/2024 4:13 PM AIRCRAFT INSTRUMENT MECHANIC): Chronic, stable. Patient uses CPAP nightly and is benefitting from therapy. Assessment & Plan (05/10/2024 8:22 AM CDT): Chronic, stable. Continue use of CPAP nightly. Hyperlipidemia 06/26/2013 Assessment & Plan (11/18/2024 4:13 PM AIRCRAFT INSTRUMENT MECHANIC): Chronic, stable. Continue Vascepa, Vytorin Has been seen by Cardiology as well Labs reviewed Assessment & Plan (05/10/2024 8:22 AM CDT): Chronic, stable. Labs ordered. Continue Vytorin and Vascepa. Generalized osteoarthritis of multiple sites Essential hypertension 04/26/2013 Assessment & Plan (11/18/2024 4:13 PM AIRCRAFT INSTRUMENT MECHANIC): Chronic, stable. Continue lisinopril 30 mg daily Assessment & Plan (05/10/2024 8:22 AM CDT): Chronic, stable. Continue lisinopril 30 mg daily. Resolved Problems Problem Noted Date Diagnosed Date Resolved Date Acquired hypothyroidism 09/08/202203/2024 Stage 3a chronic kidney disease 05/12/2016 11/18/2024 Assessment & Plan (05/10/2024 8:22 AM CDT): Chronic, stable. Continue medications as prescribed. Follows with Nephrology. Repeat labs ordered. History of colon cancer 12/04/200903/2024 Immunizations Immunization Administration Dates Next Due Influenza, [...] (Arexvy) 05/14/2024 Tdap 08/16/2019 ZOSTER Recombinant 03/28/2018,12/22/2017 Social History Tobacco Use Types Packs/Day Years [...] on file Legal Sex Male 6:00 AM AIRCRAFT INSTRUMENT MECHANIC Gender Identity Not on file Sexual Orientation Asexual 09/01/2024 9: 31 PM CDT Occupation Industry Job Start Date Job End Date retired Not on file Not on file Not on file Last Filed Vital Signs Vital Sign Reading Time Taken Comments Blood Pressure 111/72 01/16/2025 2:00 PM CDT Pulse 87 01/16/2025 2:00 PM CDT Temperature 36.7 C (98.1 F) 12/20/2024 12:38 PM AIRCRAFT INSTRUMENT MECHANIC Respiratory Rate 16 11/18/2024 3:44 PM AIRCRAFT INSTRUMENT MECHANIC Oxygen Saturation 95% 01/16/2025 2:00 PM CDT Inhaled Oxygen Concentration - - Weight 93.4 kg (206 lb) 01/16/2025 2:00 PM CDT Height 165.1 cm (5' 5 ) 12/20/2024 12:38 PM AIRCRAFT INSTRUMENT MECHANIC Body Mass Index 34.28 12/20/2024 12:38 PM AIRCRAFT INSTRUMENT MECHANIC Plan of Treatment Not on file Procedures Procedure Name Priority Date/Time Associated Diagnosis Comments POCT GLUCOSE [id number] Routine 12/20/2024 12 :41 PM AIRCRAFT INSTRUMENT MECHANIC Type 2 diabetes mellitus with stage 3a chronic kidney disease, without long-term current use of insulin (HCC) EGFR Routine 11/19/2024 8:39 AM AIRCRAFT INSTRUMENT MECHANIC Type 2 diabetes mellitus with stage 3a chronic kidney disease, without long-term current use of insulin (HCC) HEMOGLOBIN A1C Routine 11/19/2024 8:39 AM AIRCRAFT INSTRUMENT MECHANIC Type 2 diabetes mellitus with stage 3a [...] hypertension Rash COLONOSCOPY Routine 01/06/2023 8:17 AM AIRCRAFT INSTRUMENT MECHANIC from Last 3 Months or Most Recently Relevant to Health Maintenance Results * POCT glucose (12/20/2024 12:41 PM AIRCRAFT INSTRUMENT MECHANIC) Pathologist [facility] Glucose Blood, POC 90 mg/dL Blood 12/20/2024 12:4 1 PM AIRCRAFT INSTRUMENT MECHANIC Chase Logan MD POINT OF CA RE TEST ORDERABLES Final Result * (ABNORMAL) eGFR (11/19/2024 8:39 AM AIRCRAFT INSTRUMENT MECHANIC) eGFR 38(L) >=60 mL/min/1. 73 m2 Comment: [...] was last reviewed 2021. Testing performed by: [address] [address] Blood 11/19/2024 8:39 AM AIRCRAFT INSTRUMENT MECHANIC 11/19/2024 12:35 PM AIRCRAFT INSTRUMENT MECHANIC Helen CRONIN LAB BLOOD ORDERABLES Fin al Result Performing Organization Address [facility] de Phone Number [place] [phone] [facility] [place] [address] * (ABNORMAL) Hemoglobin A1c (11/19/2024 8:39 AM AIRCRAFT INSTRUMENT MECHANIC) [facility] Hgb A1C 5.7(H) 4.0 - 5.6 % Comment:Testing performed by : [address] [address] Estimated Average Glucose 117 mg/dL JERAMY Comment: The ADA recommends reporting an estimated Average Glucose (eAG) with all Hemoglobin A1c results using the equation derived from a study of 507 normal and diabetic adults. Minority populations were underrepresented and children were not included. (Diabetes Care 31:5965-8181, 2008). The eAG is not equivalent to a fasting glucose. Testing performed by: [address] [address] Blood 11/19/2024 8:39 AM AIRCRAFT INSTRUMENT MECHANIC 11/19/2024 12:35 PM AIRCRAFT INSTRUMENT MECHANIC Helen CRONIN LAB BLOOD ORDERABLES Fin al Result Performing Organization Address [facility] Co de Phone Number [place] [phone] [facility] [place] [address] * Hepatitis C antibody Blood (06/27/2024 12:49 [...] 9 PM CDT 06/27/2024 6:31 PM CDT Helen CRONIN LAB MICROBIOLOGY - [facility] AL ORDERABLES Edited Result - Final JERAMY [address] [facility] Department [place] [address] * Lipid panel (06/20/2024 8:34 AM CDT) [...] on 2018. Testing performed by: [facility], [address] [place] [address]., [address] Triglycerides 87 <=149 mg/dL JERAMY ARMAS Comment: Interpretive Data Ages < or = [...] last revised on 2018. Testing performed by: [address] [address] HDL 48 >=40 mg/dL JERAMY Comment: Interpretive [...] last revised on 2018. Testing performed by: [address] [address] LDL, calculated 69 <=129 mg/dL JERAMY Comment: [...] last revised on 2018. Testing performed by: [address] [address] Non-HDL Cholesterol 86 mg/dL JERAMY Comment: Interpretive [...] last revised on 2018. Testing performed by: [address] [address] Chol/HDL ratio 3 JERAMY ARMAS Comment:Testing performed by : [address] [address] Blood 06/20/2024 8:34 AM CDT 06/20/2024 12:14 PM CDT Helen CRONIN LAB BLOOD ORDERABLES Fin al Result Performing Organization Address City/State/[facility] Co de Phone Number JERAMY [address] [facility] Department [place] [address] * DIABETES EYE EXAM (05/24/2024 4:10 PM CDT) SCRIBED DIABETIC DILATED EYE EXAM Normal Historical Provider HEALTH MAINTENANCE Final Result * Albumin Creatinine Ratio, Urine (05/10/2024 8:07 AM CDT) Albumin Ur <12.0 mg/L Comment: Interpretive Data No reference range established. Current interpretive data was last revised 2019. Testing performed by: [address] [address] Creatinine Ur 117.3 mg/dL JERAMY ARMAS Comment: Interpretive Data No reference range established. Current interpretive data was last revised 2019. Testing performed by: [address] [address] Albumin Creatinine Ratio, Ur <10 1 - 29 mg/g JERAMY ARMAS Comment:Testing performed by : [address] [place] [address] Urine 05/10/2024 8:07 AM CDT 05/10/2024 12:41 PM CDT Helen CRONIN LAB URINE ORDERABLES Fin al Result JERAMY [address] [facility] Department [place] [address] * Colonoscopy (01/06/2023 8:17 AM AIRCRAFT INSTRUMENT MECHANIC) Anatomical Region Laterality Modality Other Impressions 01/06/2023 8:17 AM AIRCRAFT INSTRUMENT MECHANIC See care everywhere for results. Patient to repeat in 1 yr Historical Provider ENDOSCOPY PROCEDURES Elisa l Result from Last 3 Months or Most Recently Relevant to Health Maintenance Insurance [facility] [employer] Care Teams Basic Sciences Dean Relationship Specialty Start Date End Date Helen Paris PA [address] [facility] [address] [place] [address] PCP - General Family Medicine 05/10/24
--- OUTSIDE RECORDS SUMMARY | 2025-03-14 09:58 | XMS_ITS | Clinical Summary ---
Author Organization [facility] Address [address] [place] [address] Phone Care Team Providers Care Night Time Babysitter Name Role Phone Abdifatah Downing MD Primary Care Provider U navailable Allergies Active Allergy Reactions Criticality Noted Date Comments Aspirin Nausea 02/02/2017 High dose only Medications aspirin EC 81 MG Tablet Delayed Response Take 81 mg by mouth daily. Active chlorthalidone (HYGROTON) 25 MG Tablet Take 25 mg by mouth daily. Active Voobx-6-tihh Ethyl Esters (LOVAZA) 1 g Capsule Take 4 Caps by mouth daily. Active niacin (NIASPAN) 1000 MG Tablet Controlled Release Take 1,000 mg by mouth every evening. Active sildenafil citrate (VIAGRA) 100 MG Tablet Take 100 mg by mouth as needed for Erectile Dysfunction. Active Cholecalciferol (VITAMIN D-3 SUPER STRENGTH) 2000 UNIT Tablet Take by mouth. Active Active Problems Problem Noted Date Diagnosed Date Polycythemia 02/02/2017 Family History Medical History Relation Name Comments Hypertension Father Stroke Father Relation Name Status Comments Father Social History Tobacco Use Types Packs/Day Years Used Date Smoking Tobacco: Never Sex and Gender Information Value Date Recorded Sex Assigned at Not on file Legal Sex Male 9:32 AM LEGAL CONTRACTS SPECIALIST Gender Identity Not on file Sexual Orientation Not on file Last Filed Vital Signs Vital Sign Reading Time Taken Comments Blood Pressure 160/90 03/02/2017 3:22 PM CDT Pulse 76 03/02/2017 3:22 PM CDT Temperature 36.8 C (98.3 F) 03/02/2017 3:22 PM CDT Respiratory Rate - - Oxygen Saturation 97% 03/02/2017 3:22 PM CDT Inhaled Oxygen Concentration - - Weight 99.8 kg (220 lb) 03/02/2017 3:22 PM CDT Height 168.9 cm (5' 6.5 ) 03/02/2017 3:22 PM CDT Body Mass Index 34.98 03/02/2017 3:22 PM CDT Plan of Treatment Health Maintenance Due Date Last Done Comments Hepatitis C Virus (HCV) Screening 1950 Colonoscopy 1994 Colorectal Cancer Screening 1994 Cologuard 1999 Immunochemical Fecal Occult Blood 1999 Respiratory Syncytial Virus (RSV) Immunization (Adult) (1 - 1-dose 75+ series) 2024 Influenza Immunization (#1) 07/07/202402/2020, 08/06/2018, 09/07/2017, Additional history exists SARS-COV-2 Immunization ( season) 2024 Zoster Immunization Completed 03/28/2018, 8 DTaP/Tdap/Td Immunization Discontinued 08/16/2019 TdaP Immunization Completed 08/16/2019 Pneumococcal Immunization (50+ years) Completed 08/26/2020, 08/07/2019 Pneumococcal Immunization Combined Discontinued 08/26/2020, 08/07/2019 Hepatitis B Immunization Aged Out No longer eligible based on patient's age to complete this topic Meningococcal Immunization (ACWY) Aged Out No longer eligible based on patient's age to complete this topic Rotavirus Immunization Aged Out No lo nger eligible based on patient's age to complete this topic Insurance [facility] Care Teams Night Time Babysitter Relationship Specialty Start Date End Date Abdifatah Downing MD PCP - General Internal Medicine 12/30/16
[2025-03-14 10:15] LABS: Hematocrit 49.3 % (42.0-52.0); Hemoglobin 15.4 g/dL (14.0-18.0); Mean Corpuscular HGB Conc 31.2 g/dl (32-36); Mean Corpuscular Hemoglobin 26.9 pg (26-34); Mean Platelet Volume 9.5 fl (7.4-10.4); Platelet Count Result 231 k/mm3 (150-375); Red Blood Count 5.73 M/mm3 (4.6-6.20); Red Cell Distribution Width 14.6 % (11.5-14.5); White Blood Count 6.2 K/mm3 (4.5-10.0)
[2025-03-14 11:38] LABS: Parathyroid Intact 61.6 pg/mL (14.5-75.2)
[2025-03-14 12:00] LABS: Albumin Level 4.6 g/dL (3.5-5.1); Anion Gap 10 mmol/L (4-12); Blood Urea Nitrogen 18 mg/dL (9-20); Calcium 10.1 mg/dL (8.4-10.2); Carbon Dioxide 27 mmol/L (22-30); Chloride 104 mmol/L (98-107); Estimated Glomerular Filt Rate 51; Glucose 94 mg/dL (65-110); Phosphorus 3.1 mg/dL (2.5-4.5); Potassium 4.2 mmol/L (3.4-5.0); Sodium 141 mmol/L (137-145)
[2025-03-15 06:39] LABS: Protein, Total 7.3 g/dL (6.1-8.1)
[2025-03-17 14:17] LABS: Immunofixation, Serum Normal pattern.
[2025-03-17 19:44] LABS: Albumin 4.4 g/dL (3.8-4.8); Alpha 1 Globulin 0.2 g/dL (0.2-0.3); Alpha 2 Globulin 0.7 g/dL (0.5-0.9); Beta 1 Globulin 0.4 g/dL (0.4-0.6); Gamma Globulin 1.3 g/dL (0.8-1.7)
[2025-03-19 14:58] LABS: Parathyroid Hormone Related Pr 13 pg/mL (11-20)
== END 2025-03-14 09:51 | disposition home or self-care (01) ==
LOC: ANHLAB 09:51
PROVIDERS: PCP Internal Medicine; Visit Provider Internal Medicine Nephrology
DX: E83.52 Hypercalcemia (principal); N18.9 Chronic kidney disease, unspecified
CPT/HCPCS: 36415; 80069; 83519; 83970; 84155; 84165; 85027; 86334

== ENCOUNTER 2025-09-12 09:55 | Outpatient (CLI) | payer MEDICARE, SELFPAY ==
[2025-09-12 10:23] LABS: Hematocrit 52.4 % (42.0-52.0); Hemoglobin 16.2 g/dL (14.0-18.0); Mean Corpuscular HGB Conc 30.9 g/dl (32-36); Mean Corpuscular Hemoglobin 26.8 pg (26-34); Mean Corpuscular Volume 86.8 fl (80-100); Platelet Count Result 232 k/mm3 (150-375); Red Blood Count 6.04 M/mm3 (4.6-6.20); White Blood Count 6.1 K/mm3 (4.5-10.0)
--- OUTSIDE RECORDS SUMMARY | 2025-09-12 10:40 | XMS_ITS | Clinical Summary ---
Author Organization [facility] Address [address] [place] [address] Phone Care Team Providers Care Director Advanced Name Role Phone Abdifatah Downing MD Primary Care Provider U navailable Allergies Active Allergy Reactions Criticality Noted Date Comments Aspirin Nausea 02/02/2017 High dose only Medications aspirin EC 81 MG Tablet Delayed Response Take 81 mg by mouth daily. Active chlorthalidone (HYGROTON) 25 MG Tablet Take 25 mg by mouth daily. 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 Gender Identity Not on file Sexual Orientation [...] 3:22 PM CDT Height 168.9 cm (5' 6.5) 03/02/2017 3:22 PM CDT Body Mass Index 34.98 03/02/2017 3:22 PM CDT Plan of Treatment Health Maintenance Due Date Last Done Comments Hepatitis C Virus (HCV) Screening 1950 Respiratory Syncytial Virus (RSV) Immunization (Adult) (1 - 1-dose 75+ series) 2024 Influenza Immunization (#1) 07/07/20250 02/2020, 08/06/2018, 09/07/2017, Additional history exists SARS-COV-2 Immunization ( season) 2025 Zoster Immunization Completed 03/28/2018, 8 DTaP/Tdap/Td Immunization Discontinued 08/16/2019 TdaP Immunization Completed 08/16/2019 Pneumococcal Immunization (50+ years) Completed 08/26/2020, 08/07/2019 Pneumococcal Immunization Combined Discontinued 08/26/2020, 08/07/2019 Hepatitis B Immunization Aged Out No longer eligible based on patient's age to complete this topic Human Papillomavirus (HPV) Immunization Aged Out No longer eligible based on patient's age to complete this topic Meningococcal Immunization (ACWY) Aged Out No longer eligible based on patient's age to complete this topic Rotavirus Immunization Aged Out No lo nger eligible based on patient's age to complete this topic Insurance [facility] Care Teams Director Advanced Relationship Specialty Start Date End Date Abdifatah Downing MD PCP - General Internal Medicine 12/30/16
--- OUTSIDE RECORDS SUMMARY | 2025-09-12 10:40 | XMS_ITS | Encounter Summary ---
Author Organization [facility] Address [address] [place] [id number] Care Team Providers Care Hplc Chemist Name Role Phone Aleaxndra Coffman MD Primary Care Provider [phone] Encounter Details Date Type Department Care Team (Late st Contact Info) Description 12/28/2023 Betable Message Little1 [facility] Family & Internal Medicine [facility] [address] [place] [address] [place], [facility] Provider Reschedule appointment Social History Tobacco [...] Master's degree (e.g., MA, MS, Hazel, MEd, MEDIATION COMMISSIONER, ZARI) 09/21/2018 Sex and Gender Information Value Date Recorded Sex Assigned at Not on file Legal Sex Male 7:31 PM CDT Gender Identity Not on file Sexual Orientation Not on file 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 [place] [address] PCP - General FAMILY PRACTICE 11/14/22 02/04/24 documented as of this encounter
--- OUTSIDE RECORDS SUMMARY | 2025-09-12 10:40 | XMS_ITS | Clinical Summary ---
Author Organization [address] Address [address] [place] [id number] Care Team Providers Care Building Maintenance Supervisor Name Role Phone Helen Paris Primary Care Provider + Allergies Active Allergy Reactions Criticality Noted Date Comments Aspirin Medications ascorbic acid (VITAMIN C) 1,000 mg tablet Take 1 tablet (1,000 mg total) by mouth daily Active cycloSPORINE (RESTASIS) 0.05 % ophthalmic emulsion Administer 1 drop into affected eye(s) 2 (two) times a day Active olopatadine (PATANOL) 0.1 % ophthalmic solution Administer 1 drop into affected eye(s) 2 (two) times a day 024 Active clotrimazole 1 % creamIndications: Rash Apply topically 2 (two) times a day 30 g 024 Active cholecalciferol (VITAMIN D-3) 1,000 unit capsule Take 2 capsules (2,000 Units total) by mouth daily 180 capsule 3 024 Active mometasone (ELOCON) 0.1 % creamIndications: Eczema, unspecified type Apply 1 Application topically daily 45 g 5 024 Active sildenafiL (VIAGRA) 100 mg tabletIndications :Erectile dysfunction, unspecified erectile dysfunction type Take 1 tablet (100 mg total) by mouth as needed for erectile dysfunction 10 tablet 5 024 Active icosapent ethyL (VASCEPA) 1 gram capsuleIndication s:Mixed hyperlipidemia Take 2 capsules (2 g total) by mouth 2 (two) times a day 360 capsule 3 025 Active allopurinoL (ZYLOPRIM) 100 mg tabletIndications :Idiopathic chronic gout of multiple sites without tophus Take 1 tablet (100 mg total) by mouth daily 90 tablet 3 025 Active chlorthalidone (HYGROTON) 25 mg tabletIndications :Essential hypertension Take 1 tablet (25 mg total) by mouth daily 90 tablet 3 025 Active ezetimibe-simvast atin (VYTORIN) 10-40 mg per tabletIndications :Mixed hyperlipidemia Take 1 tablet by mouth nightly 100 tablet 1 025 2025 Active lisinopriL (PRINIVIL,ZESTRIL ) 10 mg tabletIndications :Essential hypertension Take 3 tablets (30 mg total) by mouth daily 300 tablet 1 025 Active semaglutide (Ozempic) 0.25 mg or 0.5 mg (2 mg/3 mL) pen injector injectionIndicati ons:Type 2 diabetes mellitus with stage 3a chronic kidney disease, without long-term current use of insulin (HCC) INJECT 0.5 MG UNDER THE SKIN ONCE A WEEK 3 mL 1 025 Active semaglutide (Ozempic) 0.25 mg or 0.5 mg (2 mg/3 mL) pen injector injectionIndicati ons:Type 2 diabetes mellitus with stage 3a chronic kidney disease, without long-term current use of insulin (HCC) Inject 0.5 mg under the skin once a week 9 mL 1 025 2024 Discontinued Active Problems Problem Noted Date Diagnosed Date Medicare annual wellness visit, subsequent 05/21 Assessment & Plan (05/21/2025 8:46 PM CDT): Doing well Screenings up to date Labs reviewed Continue healthy habits Primary hyperparathyroidism 03/26/2025 Assessment & Plan (05/21/2025 8:46 PM CDT): Chronic, stable Vitamin D supplement Monitoring labs Type 2 diabetes mellitus wit h stage 3a chronic kidney disease, without long-term current use of insulin 11/18/2024 Assessment & Plan (05/21/2025 8:45 PM CDT): Chronic, stable condition. Continue current medication regimen: Ozempic 0.5mg weekly Labs ordered Eye exam UTD Assessment & Plan (11/18/2024 4:12 PM DIRECTOR OF INTEGRATED MARKETING): Chronic, stable. Follows with Nephrology for kidney disease which has been stable. Diabetes managed with Ozempic - good control Repeat labs ordered Eye exam on file, no retinopathy Continues on statin, lisinopril, aspirin Erectile dysfunction 05/10/2024 Assessment & Plan (05/21/2025 8:44 PM CDT): Chronic, stable condition. Continue current medication regimen: viagra PRN Assessment & Plan (05/10/2024 8:25 AM CDT): Chronic, stable continues on Viagra. Eczema 05/10/2024 Assessment & Plan (05/21/2025 8:45 PM CDT): Chronic, stable condition. Elocon helping Assessment & Plan (05/10/2024 8:24 AM CDT): Chronic, stable. Continue Elocon on p.r.n.. Dermatology referral placed. Recurrent major depressive disorder, in full rem ission 08/31/2021 Assessment & Plan (05/21/2025 8:43 PM CDT): Chronic, stable condition. No longer taking SSRI, doing well without Assessment & Plan (11/18/2024 4:13 PM DIRECTOR OF INTEGRATED MARKETING): Chronic, stable. Continue Lexapro 10 mg daily Assessment & Plan (05/10/2024 8:22 AM CDT): Chronic, stable. Continue Lexapro 10 mg daily. 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 Continue current medication regimen: allopurinol 100mg daily Labs ordered Assessment & Plan (11/18/2024 4:13 PM DIRECTOR OF INTEGRATED MARKETING): Chronic, stable. Continue daily allopurinol Assessment & Plan (05/10/2024 8:22 AM CDT): Chronic, stable. Continue allopurinol daily. Hyperuricemia 02/23/2021 Assessment & Plan (05/21/2025 8:44 PM CDT): Chronic, stable condition. Continue current medication regimen: allopurinol, labs ordered Assessment & Plan (11/18/2024 4:13 PM DIRECTOR OF INTEGRATED MARKETING): Chronic, stable. Continue allopurinol 100 mg daily Steatosis of liver 02/17/2021 Assessment & Plan (05/21/2025 8:43 PM CDT): Chronic, stable Continue working on weight loss Monitor labs/liver enzymes Assessment & Plan (05/10/2024 8:22 AM CDT): Chronic. Repeat labs ordered. Continue weight loss. History of colon cancer 08/07/2019 Assessment & Plan (05/21/2025 8:44 PM CDT): Referral to GI Assessment & Plan (11/18/2024 4:14 PM DIRECTOR OF INTEGRATED MARKETING): Monitored with routine colonoscopy. Follows with Dr. Naomi yan recently done, report requested Assessment & Plan (05/10/2024 8:15 AM CDT): Colon cancer s/p colon resection 2004 Last c-scope 01/2023 - was to be repeated in 1 year Will refer to GI for repeat c-scope and surveillance Obstructive sleep apnea syndrome 11/09/2016 Assessment & Plan (05/21/2025 8:43 PM CDT): Chronic, stable condition. Continue current medication regimen: CPAP Assessment & Plan (11/18/2024 4:13 PM DIRECTOR OF INTEGRATED MARKETING): Chronic, stable. Patient uses CPAP nightly and is benefitting from therapy. Assessment & Plan (05/10/2024 8:22 AM CDT): Chronic, stable. Continue use of CPAP nightly. Hyperlipidemia 06/26/2013 Assessment & Plan (05/21/2025 8:44 PM CDT): Chronic, stable condition. Continue current medication regimen: Vytorin Labs ordered Assessment & Plan (11/18/2024 4:13 PM DIRECTOR OF INTEGRATED MARKETING): Chronic, stable. Continue Vascepa, Vytorin Has been seen by Cardiology as well Labs reviewed Assessment & Plan (05/10/2024 8:22 AM CDT): Chronic, stable. Labs ordered. Continue Vytorin and Vascepa. Generalized osteoarthritis of multiple sites Assessment & Plan (05/21/2025 8:44 PM CDT): Pain well controlled Essential hypertension 04/26/2013 Assessment & Plan (05/21/2025 8:44 PM CDT): Chronic, stable condition. Continue current medication regimen: lisinopril 30mg daily Assessment & Plan (11/18/2024 4:13 PM DIRECTOR OF INTEGRATED MARKETING): Chronic, stable. Continue lisinopril 30 mg daily Assessment & Plan (05/10/2024 8:22 AM CDT): Chronic, stable. Continue lisinopril 30 mg daily. Resolved Problems Problem Noted Date Diagnosed Date Resolved Date Acquired hypothyroidism 09/08/2022 07/0 03/2024 Hypercalcemia 12/26/2017 05/20/2025 Assessment & Plan (11/18/2024 4:12 PM DIRECTOR OF INTEGRATED MARKETING): Patient has had some fluctuating calcium levels We will recheck, labs ordered He is also following with Nephrology who had ordered some additional workup including: - Immunofixation (MIGUELINA) and Protein Electrophoresis, Serum; Future - Parathyroid-related Peptide (PTH-rP); Future - PTH Intact, Serum; Future Could be secondary to his diuretic/chlorthalidone Stage 3a chronic kidney disease 05/12/2016 11/18/2024 Assessment & Plan (05/10/2024 8:22 AM CDT): Chronic, stable. Continue medications as prescribed. Follows with Nephrology. Repeat labs ordered. History of colon cancer 12/04/2009 07/0 03/2024 Immunizations Immunization Administration Dates Next Due Influenza, [...] (chronic kidney disease) Hypertension Vision problems Gout Diabetes insipidus Type 2 diabetes mellitus Hypercalcemia 12/26/2017 Family History Medical History Relation Name Comments Lung cancer Brother 1 Liver cancer Brother 2 Liver cancer Brother 3 blood pressure Father Hypertension Mother Usha Myat Tin Cancer Sister 1 Iram Walden Swe No Known Problems Sister 2 Hypertension Sister 3 Iram Beani Ngwe Relation Name Status Comments Brother 1 Brother 2 Brother 3 Father Maternal Grandfather Maternal Grandmother Mother Usha Myat Tin Paternal Grandfather Paternal Grandmother Sister 1 Iram Walden Swe Alive Sister 2 Alive Sister 3 Iram Walden Ngwe Alive Social History Tobacco Use Types Packs/Day Years Used Date Smoking Tobacco: Never Smokeless Tobacco: Never Tobacco Cessation:Counseling Given: Not Answered AUDIT-C Answer Date Recorded Q1: How often do you have a drink containing alc ohol? Monthly or less 05/20/2025 Q2: How many drinks containi ng alcohol do you have on a typical day when you are drinking? 1 or 2 05/20/2025 Q3: How often do you have si x or more drinks on one occasion? Never 05/20/2025 PHQ-2 Answer Date Recorded PHQ-2 Total Score (If total score is 3 or more points, staff should administer the PHQ-9) 0 05/20/2025 Exercise Vital Sign Answer Date Recorde d [...] on file Legal Sex Male 6:00 AM DIRECTOR OF INTEGRATED MARKETING Gender Identity Not on file Sexual Orientation Asexual 09/01/2024 9: 31 PM CDT Occupation Industry Job Start Date Job End Date retired Not on file Not on file Not on file Last Filed Vital Signs Vital Sign Reading Time Taken Comments Blood Pressure 132/70 05/20/2025 8:27 AM CDT Pulse 72 05/20/2025 8:27 AM CDT Temperature 36.3 C (97.3 F) 05/20/2025 8:27 AM CDT Respiratory Rate 14 05/20/2025 8:27 AM CDT Oxygen Saturation 98% 05/20/2025 8:27 AM CDT Inhaled Oxygen Concentration - - Weight 90.9 kg (200 lb 4.8 oz) 05/20/2025 8:27 A M CDT Height 165.1 cm (5' 5) 05/20/2025 8:27 AM CDT Body Mass Index 33.33 05/20/2025 8:27 AM CDT Plan of Treatment Health Maintenance Due Date Last Done Comments Foot Exam 1950 Hepatitis B Screening 1968 Dilated Eye Exam 05/24/2025 05/24/2024 Covid-19 Vaccine ( season) 2025 01/22/2025, 07/08/2024, 08/07/2023, Additional history exists Influenza Vaccine (#1) 2025 , 08/07/2023, 08/31/2022, Additional history exists Hemoglobin A1C 11/20/2025 05/20/2025, 11/06, 05/10/2024 Albumin Creatinine Ratio, Urine 05/20/2026 , 05/10/2024 Depression Screening 05/20/2026 05/20/2025, 11/18/2024, 05/10/2024, Additional history exists Fall Risk Assessment 05/20/2026 05/20/2025, 05/10/20 24 Lipid Panel 05/20/2026 05/20/2025, 06/06, 05/10/2024, Additional history exists Well Visit 65+ 05/20/2026 05/20/2025 eGFR 05/20/2026 05/20/2025, 11/06, 09/13/2024, Additional history exists DTaP/Tdap/Td Vaccine (2 - Td or Tdap) 08/16/2029 08/16/2019 Zoster Vaccine Completed 03/28/2018, 12/22/2017 Pneumococcal vaccine 65+ Completed 08/26/2020, 12/2018 Colon Cancer Screening-Colonoscopy Discontinued 01/06/2023 Hepatitis C Screening Completed 06/27/2024 Procedures Procedure Name Priority Date/Time Associated Diagnosis Comments EGFR Routine 05/20/2025 9:14 AM CDT Mixed hyperlipidemia Essential hypertension Type 2 diabetes mellitus with stage 3a chronic kidney disease, without long-term current use of insulin (HCC) HEMOGLOBIN A1C Routine 05/20/2025 9:14 AM CDT Mixed hyperlipidemia Essential hypertension Type 2 diabetes mellitus with stage 3a chronic kidney disease, without long-term current use of insulin (HCC) LIPID PANEL Routine 05/20/2025 9:14 AM CDT Mixed hyperlipidemia Essential hypertension Type 2 diabetes mellitus with stage 3a chronic kidney disease, without long-term current use of insulin (HCC) ALBUMIN CREATININE RATIO, URINE Routine 05/20/2025 9:14 AM CDT Mixed hyperlipidemia Essential hypertension Type 2 diabetes mellitus with stage 3a chronic kidney disease, without long-term current use of insulin (HCC) HEPATITIS C ANTIBODY Routine 06/27/2024 12:49 PM CDT Need for hepatitis C screening test HM DIABETES EYE EXAM Routine 05/24/2024 4:10 PM CDT COLONOSCOPY Routine 01/06/2023 8:17 AM DIRECTOR OF INTEGRATED MARKETING from Last 3 Months or Most Recently Relevant to Health Maintenance Results * (ABNORMAL) eGFR (05/20/2025 9:14 AM CDT) eGFR 57(L) >=60 mL/min/1. 73 m2 Comment: Interpretive Data [...] was last reviewed 2021. Testing performed by: [facility], [address] [place] [address]., [id number] Blood 05/20/2025 9:14 AM CDT 05/20/2025 11:15 AM CDT Helen CRONIN LAB BLOOD ORDERABLES Fin al Result Performing Organization Address [facility] Co de Phone Number JERAMY [address] [place] [address] * Albumin Creatinine Ratio, Urine (05/20/2025 9:14 AM CDT) Albumin Ur <12.0 mg/L Comment: Interpretive Data No reference range established. Current interpretive data was last revised 2019. Testing performed by: [address] [address] Creatinine Ur 86.3 mg/dL JERAMY Comment: Interpretive Data No reference range established. Current interpretive data was last revised 2019. Testing performed by: [address] [address] Albumin Creatinine Ratio, Ur <14 1 - 29 mg/g JERAMY Comment:Testing performed by : [address] [id number] Urine 05/20/2025 9:14 AM CDT 05/20/2025 11:16 AM CDT Helen CRONIN LAB URINE ORDERABLES Fin al Result Performing Organization Address [facility] de Phone Number JERAMY [facility] [place] [address] * (ABNORMAL) Hemoglobin A1c (05/20/2025 9:14 AM CDT) Hgb A1C 5.8(H) 4.0 - 5.6 % Comment:Testing performed by : [address] [address] Estimated Average Glucose 120 mg/dL JERAMY Comment: The ADA recommends reporting an estimated Average Glucose (eAG) with all Hemoglobin A1c results using the equation derived from a study of 507 normal and diabetic adults. Minority populations were underrepresented and children were not included. (Diabetes Care 31:4501-1016, 2008). The eAG is not equivalent to a fasting glucose. Testing performed by: [address] [address] Blood 05/20/2025 9:14 AM CDT 05/20/2025 11:16 AM CDT us Helen CRONIN LAB BLOOD ORDERABLES Fin al Result JERAMY [address] [facility] Department [place] [address] * Lipid panel (05/20/2025 9:14 AM CDT) Cholesterol 141 30 - 199 mg/dL Comment: Interpretive Data [...] last revised on 2018. Testing performed by: [address] [address] Triglycerides 124 <=149 mg/dL JERAMY Comment: Interpretive Data Ages [...] last revised on 2018. Testing performed by: [address] [address] HDL 44 >=40 mg/dL JERAMY Comment: Interpretive Data Ages [...] last revised on 2018. Testing performed by: [address] [address] LDL, calculated 75 <=129 mg/dL JERAMY ARMAS Comment: Interpretive Data Ages < or = 19 years Acceptable: <110 mg/dL Borderline high: 110-129 mg/dL High: >or= 130 mg/dL Ages > or = 20 years Optimal: <100 mg/dL Near optimal: 100-129 mg/dL Borderline high: 130-159 mg/dL High: >160 mg/dL Calculated using the Aristides LDL-C estimating equation. This equation was implemented on 2024. Prior to this date LDL-C was estimated using the Friedewald equation. Literature References: 1. Expert Panel on Integrated Guidelines for Cardiovascular Health and Risk Reduction in Children and Adolescents. Pediatrics 2011;128:S213 2. NCEP Expert Panel. Circulation 2004;110:227 3. Aristides Bob al. AILEEN Cardiol. 2019March 06;5(5):540-548. doi: 10.1001/jamacardio.2020.0013 Current Interpretive Data was last revised on 2024. Testing performed by: [address] [address] Non-HDL Cholesterol 97 mg/dL JERAMY Comment: Interpretive Data Ages < [...] last revised on 2018. Testing performed by: [facility], [address] [place] [address]., [id number] Chol/HDL ratio 3 JERAMY Comment:Testing performed by : [facility], [address] [place] [address]., [id number] Blood 05/20/2025 9:14 AM CDT 05/20/2025 11:15 AM CDT Helen CRONIN LAB BLOOD ORDERABLES Fin al Result Performing Organization Address [facility] de Phone Number JERAMY [address] [place] [address] * Hepatitis C antibody Blood (06/27/2024 12:49 PM CDT) Pathologist [facility] Hep C Ab Nonreactive Nonreactive Comment: Antibodies [...] PM CDT Helen CRONIN LAB MICROBIOLOGY - GENER AL ORDERABLES Edited Result - Final Performing Organization Address City/[facility] Co de Phone Number [place] [phone] [facility] [place] [address] * DIABETES EYE EXAM (05/24/2024 4:10 PM CDT) SCRIBED DIABETIC DILATED EYE EXAM Normal us Historical Provider HEALTH MAINTENANCE Final Result * Colonoscopy (01/06/2023 8:17 AM DIRECTOR OF INTEGRATED MARKETING) Anatomical Region Laterality Modality Other Impressions 01/06/2023 8:17 AM DIRECTOR OF INTEGRATED MARKETING See care everywhere for results. Patient to repeat in 1 yr us Historical Provider ENDOSCOPY PROCEDURES Elisa l Result from Last 3 Months or Most Recently Relevant to Health Maintenance Insurance [facility] MEDICARE [employer] MEDICARE Care Teams Building Maintenance Supervisor Relationship Specialty Start Date End Date Helen Paris PA [address] [address] PCP - General Family Medicine 05/10/24
--- OUTSIDE RECORDS SUMMARY | 2025-09-12 10:40 | XMS_ITS | Clinical Summary ---
Author Organization [facility] jason Address [address] [place] [phone] Phone Care Team Providers Care Railroad Police Officer Name Role Phone Abdifatah Downing MD Primary Care Provider [phone] Allergies Active Allergy Reactions Criticality Noted Date Comments Aspirin nausea Low 02/02/2017 High dose only High dose only Medications sildenafil (VIAGRA) 100 MG tablet as directed 0 7 Active aspirin EC 81 MG EC tablet one tab daily 0 7 Active cholecalciferol (VITAMIN D-3) 25 MCG (1000 UT) capsule Take 2,000 Units by mouth 1 (one) time each day Active olopatadine (PATANOL) 0.1 % ophthalmic solution 1 drop in the morning and 1 drop in the evening. Active allopurinol (ZYLOPRIM) 100 MG tablet Take 100 mg by mouth 1 (one) time each day Active cycloSPORINE (RESTASIS) 0.05 % ophthalmic emulsion [...] clotrimazole (LOTRIMIN) 1 % cream Apply topically in the morning and in the evening. Active ezetimibe-simva statin (VYTORIN) 10-40 MG per tablet Take 1 tablet by mouth every night Active Active Problems Problem Noted Date Diagnosed Date Primary hyperparathyroidism 03/26/2025 Hypercalcemia 09/25/2024 Chronic kidney disease 12/26/2017 Obstructive [...] Tobacco: Never Tobacco Cessation:Counseling Given: Not Answered Alcohol Use Standard Drinks/Week Comments Yes 0 (1 standard drink = 0.6 oz pure alcohol) Alcoholic Drinks/day: occasional use Sex and Gender Information Value Date Recorded Sex Assigned at Not on file Legal Sex Male 9:45 AM [facility] Gender Identity Not on file Sexual Orientation Not on file Last Filed Vital Signs Vital Sign Reading Time Taken Comments Blood Pressure 124/80 03/26/2025 2:29 PM CDT Pulse 77 03/26/2025 2:29 PM CDT Temperature - - Respiratory Rate - - Oxygen Saturation - - Inhaled Oxygen Concentration - - Weight 92.5 kg (204 lb) 03/26/2025 2:29 PM CDT Height 167.6 cm (5' 6) 03/26/2025 2:29 PM CDT Body Mass Index 32.93 03/26/2025 2:29 PM CDT Plan of Treatment Upcoming Encounters Date Type Department Care Team ([facility] Contact Info) Description 09/24/2025 3:00 PM PROCESSING CLERK Office Visit [facility] [address] [place] [address] [address] [place] [address] Amadeo Tomlin MD [address] [address] Health Maintenance Due Date Last Done Comments Diabetic Foot Exam 1960 Ophthalmology Exam 1960 Pneumococcal PPSV23/PCV13 65 + Years / High and Highest Risk (2 of 4 - PPSV23, PCV20, or PCV21) 10/02/2019 08/07/2019 COVID-19 Vaccine (5 - 2024-2 6 season) 2025 02/17/2022, 08/29/2021, 01/26/2021, Additional history exists Influenza Vaccine (#1) 2025 , 08/27/2021, 08/09/2020, Additional history exists Insurance [employer]ANCE Care Teams Railroad Police Officer Relationship Specialty Start Date End Date Abdifatah Downing MD [address] [place] [phone] PCP - General 03/27/25
--- OUTSIDE RECORDS SUMMARY | 2025-09-12 10:40 | XMS_ITS | Clinical Summary ---
Author Organization [facility] Address [address] [place] [address] Care Team Providers Care Wallboard Worker Name Role Phone Unavailable Primary Care Provider Unavailabl e Allergies Active Allergy Reactions Criticality Noted Date Comments Aspirin Nausea Only Low 02/02/2017 High dose only Medications CPAP MACHINE CPAPUnknown [id number], VentrapragadaActive 017 Active aspirin 81 MG tablet [...] polyps 09/13/2021 09/20/2021 Malignant neoplasm of rectum 12/04/2009 08/07/2019 Immunizations Immunization Administration Dates Next Due Fluzone High Dose - >Age 65 (Prefilled Syringe) 08/07/2023,08/06/2018,09/07/2017 Influenza (Generic) 11/07/2016 Influenza Adult (Generic) 08/31/2022,,08/09/2020,2017,09/07/2017,11/20/2016,09/11/2013 MODERNA COVID-19 (12+) MRNA, LNP-S, PF, 100 MCG/ 0.5 ML DOSE 08/29/2021,01/25/2021,12/17/2020 MODERNA COVID-19 (CASHIER AND SALESPERSON MARLENI JEFF), MRNA, LNP-S, PF, 50 MCG/ [...] Master's degree (e.g., MA, MS, Hazel, MEd, PICKING TE[employer], ZARI) 09/21/2018 Sex and Gender Information Value Date Recorded Sex Assigned at Not on file Legal Sex Male 7:31 PM CDT Gender Identity Not on file Sexual Orientation Not on file 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 Not on file [...] 3:22 PM CDT Height 167.6 cm (5' 6) 08/10/2023 3:22 PM CDT Body Mass Index 33.09 08/10/2023 3:22 PM CDT Plan of Treatment Health Maintenance Due Date Last Done Comments Hepatitis C 1968 Hepatitis A Vaccines (1 of 2 - Risk 2-dose series) 1969 Annual Medicare Wellness Visit 06/09/2022 06/08/2021 PHQ-2 (Physician [place]) 11/06/2024 COVID-19 Vaccine ( season) 2025 08/07/2023, 08/31/2022, 02/17/2022, Additional history exists Influenza Adult (#1) 2025 07/08/2024, 08/07/2023, 08/31/2022, Additional history exists DTaP, Tdap and Td Vaccines (2 - Td or Tdap) 08/16/2029 08/16/2019 Zoster Vaccines Completed 03/28/2018, 12/22/2017 Pneumococcal Vaccine: 50+ Years Completed 08/26/2020, 08/07/2019 Colorectal Cancer Screening Colonoscopy (10 Years) Discontinued 01/06/2023, 01/06/2023, 10/07/2021, Additional history exists RSV Immunization or 60+ Years Completed 05/14/2024 Meningococcal B Vaccine Aged Out No l [...] Diagnosis Comments COLONOSCOPY Routine 01/06/2023 8:44 AM ACCOUNT RESOLUTION EXPERT from Last 3 Months or Most Recently Relevant to Health Maintenance Results * COLONOSCOPY (10/07/2021) us Documents Scanned SCANNING Final Result [facility] from Last 3 Months or Most Recently Relevant to Health Maintenance Insurance [employer] MEDICARE
--- OUTSIDE RECORDS SUMMARY | 2025-09-12 10:40 | XMS_ITS | Encounter Summary ---
Author Organization [facility] Address [address] [place] [id number] Care Team Providers Care Manager Investment Banking Name Role Phone Abdifatah Downing MD Primary Care Provider U Alexandra Tafoya MD Primary Care Provider [phone] Encounter Details Date Type Department Care Team (Late st Contact Info) Description 03/24/2021 [email or web address] Message [facility] Family & Internal Medicine [facility] [address] [place] [address] [facility] Provider medication Social History Tobacco Use [...] Master's degree (e.g., MA, MS, [employer], MEd, REMOTE PILOT OPERATOR, ZARI) 09/21/2018 Sex and Gender Information Value Date Recorded Sex Assigned at Not on file Legal Sex Male 7:31 PM CDT Gender Identity Not on file Sexual Orientation Not on file 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 [address] [place] [address] PCP - General FAMILY PRACTICE 11/14/22 02/04/24 documented as of this encounter
--- OUTSIDE RECORDS SUMMARY | 2025-09-12 10:40 | XMS_ITS | Encounter Summary ---
Author Organization [facility] Address [address] [place] [address] Care Team Providers Care Air Hoist Operator Name Role Phone Abdifatah oDwning MD Primary Care Provider U Alexandra Tafoya MD Primary Care Provider [phone] Encounter Details Date Type Department Care Team (Late st Contact Info) Description 09/20/2018 Abstract [facility] Family & Internal Medicine - [place] [address] [place] [address] Abdifatah Downing MD Social History [...] on filedocumented in this encounter Care Teams Air Hoist Operator Relationship Specialty Start Date End Date Abdifatah Downing MD PCP - General INTERNAL MEDICINE 09/11/18 11/13/22 Alexandra Coffman MD [address] [place], [place] [address], [place] [address] PCP - General FAMILY PRACTICE 11/14/22 02/04/24 documented as of this encounter
[2025-09-12 13:11] LABS: Albumin Level 4.5 g/dL (3.5-5.1); Anion Gap 7 mmol/L (4-12); Blood Urea Nitrogen 15 mg/dL (9-20); Calcium 9.9 mg/dL (8.4-10.2); Carbon Dioxide 29 mmol/L (22-30); Chloride 101 mmol/L (98-107); Estimated Glomerular Filt Rate 40; Glucose 86 mg/dL (65-110); Potassium 4.6 mmol/L (3.4-5.0); Sodium 137 mmol/L (137-145)
[2025-09-12 13:13] LABS: Add Urine Microscopic? NO; Appearance Urine Clear (Clear); Glucose Urine UA Negative (Negative); Leukocyte Esterase Ur Negative LEU/UL (Negative); Nitrate Urine Negative (Negative); Specific Grav Ur 1.013 (1.001-1.035)
[2025-09-12 13:30] LABS: Parathyroid Intact 64.8 pg/mL (14.5-75.2)
[2025-09-12 13:40] LABS: MALB Creatinine Ratio 5.1 mg/g (0-30)
== END 2025-09-12 09:56 | disposition home or self-care (01) ==
LOC: ANHLAB 09:57
PROVIDERS: Visit Provider Internal Medicine Nephrology
DX: N18.9 Chronic kidney disease, unspecified (principal); E83.52 Hypercalcemia
CPT/HCPCS: 36415; 80069; 81003; 82043; 83970; 85027